=== PATIENT | male | born 1965 | race African-American/Black ===

== ENCOUNTER 2018-09-07 10:29 | Emergency (ER) | payer MEDICAID ==
[~2018-09-07] VITALS: Ht 175.3 cm; Wt 117.9 kg
[~2018-09-07 10:29] MED LIST: AMLO5TAB13 PO
[2018-09-07 10:30] VITALS: BP 181/110
[2018-09-07] MEDS ORDERED: cefTRIAXone SOD 1,000 MG VL IM ONE (10:45)
== END 2018-09-07 11:09 | disposition home or self-care (01) ==
LOC: ER 10:29
DX: A74.9 Chlamydial infection, unspecified (principal); R30.0 Dysuria; I10 Essential (primary) hypertension; F17.210 Nicotine dependence, cigarettes, uncomplicated; Z79.899 Other long term (current) drug therapy
CPT/HCPCS: 96372; 99283; J0696

== ENCOUNTER 2021-04-04 12:40 | Inpatient (IN) | payer MEDICAID ==
[~2021-04-04] VITALS: Ht 175.3 cm; Wt 116.0 kg
[~2021-04-04 12:40] MED LIST changes: +AMLO-489 PO; -AMLO5TAB13 PO
[2021-04-04] MEDS ORDERED: KETOROLAC TROMETH 30 MG/ML 1ML VIAL IM ONE (13:30)
[2021-04-04] MEDS ORDERED: SODIUM CHLORIDE 0.9% 1,000 ML IV ONE (13:30)
[2021-04-04 13:37] LABS: Urine Bacteria NONE SEEN /hpf (None Seen); Urine Blood 3+ /uL (Negative); Urine Specific Gravity 1.012 (1.001-1.035); Urine WBC 6 /hpf (0 - 3)
[2021-04-04 14:29] LABS: Basophils # (auto) 0 10 ^3/uL (0-0.2); Basophils % (auto) 0.6 % (0.0-2.0); Eosinophils # (auto) 0.2 10 ^3/uL (0-0.8); Eosinophils % (auto) 3.6 % (0.0-7.0); Hematocrit 40.7 % (41.0-53.0); Hemoglobin 13.3 g/dL (13.5-17.5); Lymphocytes # (auto) 2.2 10 ^3/uL (0.4-5.4); Lymphocytes % (auto) 48.2 % (10.0-50.0); Mean Corpuscular Hemoglobin 28.6 pg (28.0-32.0); Mean Corpuscular Hgb Conc. 32.8 g/dL (32.0-36.0); Mean Corpuscular Volume 87.2 fL (80.0-100.0); Monocytes # (auto) 0.4 10 ^3/uL (0-1.3); Neutrophils # (auto) 1.8 10 ^3/uL (1.6-8.6); Neutrophils % (auto) 39.6 % (37.0-80.0); Nucleated Red Blood Cells % 0.1 %; Red Blood Cells 4.66 10^6/uL (4.5-5.90); Red Cell Distribution Width 13.6 % (11.8-14.3); White Blood Cell 4.5 10^3/uL (4.4-10.8)
[2021-04-04 15:41] LABS: Anion Gap 9 (5-15); Carbon Dioxide 23 mmol/L (21-32); Chloride 108 mmol/L (98-107); Glucose 95 mg/dL (74-106); Potassium 3.9 mmol/L (3.5-5.1); Sodium 140 mmol/L (136-145)
[2021-04-04 15:42] LABS: Alanine Aminotransferase 24 U/L (16-61); Alkaline Phosphatase 69 U/L (45-117); Aspartate Aminotransferase 19 U/L (15-37); BUN/Creatinine Ratio 12.1; Blood Urea Nitrogen 13 mg/dL (7-18); GFR African American 93 mL/min; GFR Non-African American 77 mL/min
[2021-04-04 15:43] LABS: Albumin 3.9 g/dL (3.4-5.0); Bilirubin, Total 0.6 mg/dL (0.2-1.0); Calcium 8.8 mg/dL (8.5-10.1); Total Protein 7.2 g/dL (6.4-8.2)
[2021-04-04] MEDS ORDERED: cefTRIAXone 1GM/50ML D5W 50 ML IV ONE (15:45)
[2021-04-04] MEDS ORDERED: ONDANSETRON HCL 4 MG/2 ML VIAL IV ONE (15:45)
[2021-04-04] MEDS ORDERED: IOHEXOL 300 MG/ML 100ML BOTTLE IJ ONE (16:19)
[2021-04-04] MEDS ORDERED: SODIUM CHLORIDE 0.9% 500 ML IV ONE (23:45)
[2021-04-04] MEDS ORDERED: MORPHINE SULFATE 4 MG/ML SYR/VIAL IV ONE (23:45)
[2021-04-05] MEDS ORDERED: TEMAZEPAM 15 MG CAP PO PRN (00:30)
[2021-04-05] MEDS ORDERED: ONDANSETRON HCL 4 MG/2 ML VIAL IV PRN (00:30)
[2021-04-05] MEDS ORDERED: ACETAMINOPHEN 325 MG TAB PO PRN (00:30)
[2021-04-05] MEDS: HYDROcodone-ACET 5/325MG TAB PO PRN ×2 (06:40→21:14)
[2021-04-05] MEDS: cefTRIAXone 1GM/50ML D5W 50 ML IV SCH (09:00)
[2021-04-05] MEDS: HCTZ 25 MG TAB PO SCH (09:31)
[2021-04-05] MEDS: PANTOPRAZOLE 40 MG TAB PO SCH (09:33)
[2021-04-05] MEDS ORDERED: amLODIPine BESYLATE 5 MG TAB PO SCH (10:00)
[2021-04-05] MEDS ORDERED: TRAM50TA2 PO (14:04)
[2021-04-05] MEDS ORDERED: MORPHINE SULFATE INJECTION 2 MG/ML SYRG IV PRN (15:15)
[2021-04-05] MEDS: LACTATED RINGER'S 1,000 ML IV SCH (15:32)
[2021-04-05 17:54] VITALS: BP 164/86
[2021-04-05] MEDS ORDERED: TAMSULOSIN HYDROCHLORIDE 0.4 MG CAP PO SCH (18:00)
[2021-04-05 22:00] VITALS: BP 159/91
[2021-04-05] MEDS: hydrALAZINE HCL 20 MG/ML VL IV PRN (22:07)
[2021-04-06 05:00] VITALS: BP 163/88
[2021-04-06] MEDS: HYDROcodone-ACET 5/325MG TAB PO PRN (05:06)
[2021-04-06] MEDS: hydrALAZINE HCL 20 MG/ML VL IV PRN (05:07)
[2021-04-06] MEDS: LACTATED RINGER'S 1,000 ML IV SCH (05:21)
[2021-04-06 07:44] LABS: Basophils # (auto) 0 10 ^3/uL (0-0.2); Basophils % (auto) 0.5 % (0.0-2.0); Eosinophils # (auto) 0.1 10 ^3/uL (0-0.8); Eosinophils % (auto) 3.3 % (0.0-7.0); Hematocrit 41.6 % (41.0-53.0); Hemoglobin 13.9 g/dL (13.5-17.5); Lymphocytes # (auto) 1.6 10 ^3/uL (0.4-5.4); Lymphocytes % (auto) 39.4 % (10.0-50.0); Mean Corpuscular Hemoglobin 28.6 pg (28.0-32.0); Mean Corpuscular Hgb Conc. 33.3 g/dL (32.0-36.0); Mean Corpuscular Volume 85.9 fL (80.0-100.0); Monocytes # (auto) 0.4 10 ^3/uL (0-1.3); Monocytes % (auto) 9.1 % (0.0-12.0); Neutrophils % (auto) 47.7 % (37.0-80.0); Nucleated Red Blood Cells % 0.2 %; Red Blood Cells 4.85 10^6/uL (4.5-5.90); Red Cell Distribution Width 13.4 % (11.8-14.3); White Blood Cell 4.2 10^3/uL (4.4-10.8)
[2021-04-06 07:58] LABS: Calcium 8.9 mg/dL (8.5-10.1); Magnesium 2.9 mg/dL (1.6-2.6); Potassium 3.8 mmol/L (3.5-5.1)
[2021-04-06 08:00] VITALS: BP 157/67
[2021-04-06 08:01] LABS: BUN/Creatinine Ratio 10.7
[2021-04-06] MEDS: PANTOPRAZOLE 40 MG TAB PO SCH (09:16)
[2021-04-06] MEDS: HCTZ 25 MG TAB PO SCH (09:18)
[2021-04-06] MEDS: cefTRIAXone 1GM/50ML D5W 50 ML IV SCH (09:18)
[2021-04-06] MEDS ORDERED: amLODIPine BESYLATE 5 MG TAB PO SCH (10:00)
[2021-04-06 12:00] VITALS: BP 134/104
[2021-04-06 14:59] VITALS: BP 157/67
[2021-04-06] MEDS ORDERED: HYDR25TA5 PO (15:58)
[2021-04-06] MEDS ORDERED: AML5T PO (15:58)
[2021-04-06 16:00] VITALS: BP 154/92
[2021-04-06 17:20] VITALS: BP 154/92
== END 2021-04-06 18:00 | disposition home or self-care (01) | DRG 465 ==
LOC: ER 12:40 → OVERFLOW 04-05 00:29 → WEST WING 04-05 17:46
PROVIDERS: ADMIT Nurse Practitioner; ATTEND Internal Medicine
DX: N20.1 Calculus of ureter (principal); E66.9 Obesity, unspecified; F17.210 Nicotine dependence, cigarettes, uncomplicated; I10 Essential (primary) hypertension; N13.9 Obstructive and reflux uropathy, unspecified; Z87.442 Personal history of urinary calculi; Z90.49 Acquired absence of other specified parts of digestive tract; Z68.37 Body mass index [BMI] 37.0-37.9, adult; Z20.822 Contact with and (suspected) exposure to COVID-19
CPT/HCPCS: 36415; 74177; 80048; 80053; 81001; 83735; 85025; 87086; 87426; 96361; 96365; 96366; 96372; 96375; 96376; G0378; J0696; J1885; J2405